=== PATIENT | male | born 1975 | race Caucasian/White ===

== ENCOUNTER 2017-08-08 19:02 | Emergency (ER) | payer OTHER ==
--- NOTE | 2017-08-08 19:27 | CPEKG ---
Heart Rate: 69 RR Interval: 870 P-R Interval: 118 QRSD Interval: 96 QT Interval: 376 QTC Interval: 403 P Lowland: 74 QRS Lowland: -11 T Wave Lowland: 45 EKG Severity - NORMAL ECG - EKG Impression: SINUS RHYTHM Electronically Signed By: Claire Irene 08-Aug-2017 22:59:03
[2017-08-08] MEDS ORDERED: NS 500 ML IV ONE (19:32)
--- NOTE | 2017-08-08 19:32 | EDPHY ---
H & P Stated Complaint: chest tightness with exertion Time Seen by Provider: 08/08/17 19:31 HPI/ROS: HPI: This is a 42-year-old male who presents with Chief Complaint: chest tightness with exertion Location: Chest Quality: Tightness with exertion Duration: Since Monday Signs and Symptoms: no shortness of breath at rest, no shortness of breath on exertion, no cough, no chest pain, no palpitations, no lower extremity edema, no wheezing, no orthopnea, no paroxysmal nocturnal dyspnea, no fever, no injury/ trauma, no hemoptysis Timing: Intermittent episodes Severity: Moderate Context: Patient is generally healthy, physically active and presents with complaints of cardiac awareness, pounding pulse and decreased physical endurance anterior chest tightness that is nonradiating in nature that started Monday [place]. Patient reports that he does this several times per month and has no had no difficulty in the past. He reports that the episode lasted for a few minutes, he was winded and felt like he was just tired. Monday similar occurrence happened. Monday evening he went to an exercise class and felt winded with chest tightness. Patient denies any nausea/vomiting/diaphoresis/palpitations/lower extremity edema. Family history of coronary artery disease with stents. He has no PCP. Nonsmoker. Modifying Factors: None Comment: ROS: see HPI Constitutional: No fever, no chills, no weight loss Eyes: No blurred vision Respiratory: No shortness of breath, no cough Cardiovascular: + chest pain, no palpitations, no lower extremity edema Gastrointestinal: No nausea, no vomiting, no diarrhea Genitourinary: No dysuria Extremities: No myalgias Neurologic: No weakness, no numbness Skin: No rashes Hematologic: No bruising, no bleeding MEDICAL/SURGICAL/SOCIAL HISTORY: Medical history: Burketts lymphoma Surgical history: Denies Social history: Employed. CONSTITUTIONAL: Well-developed well-nourished adult white male, awake and alert , no obvious distress HEENT: Atraumatic and normocephalic, PERRL, EOMI. Tympanic membranes clear. Oropharynx clear, no exudate and moist pink mucosa. Airway patent. No lymphadenopathy. No meningismus. Cardiovascular: Normal S1/S2, regular rate, regular rhythm, without murmur rub or gallop. PULMONARY/CHEST: Symmetrical and nontender. Clear to auscultation bilaterally. Good air movement. No accessory muscle usage. ABDOMEN: Soft, nondistended, nontender, no rebound, no guarding, no peritoneal signs, no masses or organomegaly. No CVAT. EXTREMITIES: 2/2 pulses, strength 5/5, no deformities, no clubbing, no cyanosis or edema. NEUROLOGICAL: no focal neuro deficits. GCS 15. SKIN: Warm and dry, no erythema. no rash. Good capillary refill. Source: Patient Exam Limitations: No limitations - Personal History Current Tetanus/Diphtheria Vaccine: Yes - Medical/Surgical History Hx Asthma: No Hx Chronic Respiratory Disease: No Hx Diabetes: No Hx Cardiac Disease: No Hx Renal Disease: No Hx Cirrhosis: No Hx Alcoholism: No Hx HIV/AIDS: No Hx Splenectomy or Spleen Trauma: No Other PMH: burkettes lymphoma - Social History Smoking Status: Never smoked Constitutional: Initial Vital Signs Temperature (C) 36.8 C 08/08/17 19:04 Heart Rate 78 08/08/17 19:04 Respiratory Rate 18 08/08/17 19:04 Blood Pressure 158/111 H 08/08/17 19:04 O2 Sat (%) 96 08/08/17 19:04 O2 Delivery Mode Room Air Allergies/Adverse Reactions: Penicillins Allergy (Verified 08/08/17 19:03) Home Medications: Medication Instructions Recorded NK [No Known Home Meds] 08/08/17 Medical Decision Making - Diagnostics Imaging Results: Imaging Impressions Chest X-Ray 08/08/17 19:32 Impression: Clear lungs. No acute process. ED Course/Re-evaluation: EKG, chest x-ray, labs ordered Vital signs reviewed upon arrival in show elevated blood pressure. EKG shows no acute ischemic changes or arrhythmias. YOSELIN risk factors= 8; low risk for ACS Labs reviewed and unremarkable Troponin x2 within normal limits Appropriate to discharge home with Cardiology follow-up outpatient including determination of candidacy for echocardiogram and nuclear stress test. Reassessed patient who reports no chest tightness or shortness of breath. This patient was seen under the supervision of my primary supervising physician. I evaluated care for this patient independently. Differential Diagnosis: Chest pain including but not limited to myocardial ischemia, pulmonary embolus, chest wall pain, pleural inflammation and pulmonary infectious causes. - Data Points Laboratory Results: Laboratory Results 08/08/17 19:46 08/08/17 19:46 08/08/17 08/08/17 08/08/17 22:45 19:46 19:46 WBC RBC Hgb Hct MCV MCH MCHC RDW Plt Count MPV Neut % (Auto) Lymph % (Auto) [place] % (Auto) Eos % (Auto) Baso % (Auto) Nucleat RBC Rel Count Absolute Neuts (auto) Absolute Lymphs (auto) Absolute Monos (auto) Absolute Eos (auto) Absolute Basos (auto) Absolute Nucleated RBC Immature Gran % Immature Gran # D-Dimer < 0.27 ug/mLFEU ug/mLFEU (0.00-0.50) Sodium 139 mEq/L mEq/L (135-145) Potassium 4.6 mEq/L mEq/L (3.5-5.2) Chloride 106 mEq/L mEq/L (97-110) Carbon Dioxide 22 mEq/l mEq/l (22-31) Anion Gap 11 mEq/L mEq/L (8-16) BUN 20 mg/dL mg/dL (7-23) Creatinine 1.0 mg/dL mg/dL (0.7-1.3) Estimated GFR > 60 Glucose 95 mg/dL mg/dL (70-100) Calcium 10.0 mg/dL mg/dL (8.5-10.4) Troponin I < 0.012 ng/mL ng/mL < 0.012 ng/mL ng/mL (0.000-0.034) (0.000-0.034) 08/08/17 19:46 WBC 4.34 10^3/uL 10^3/uL (3.80-9.50) RBC 4.98 10^6/uL 10^6/uL (4.40-6.38) Hgb 15.7 g/dL g/dL (13.7-17.5) Hct 46.0 % % (40.0-51.0) MCV 92.4 fL fL (81.5-99.8) MCH 31.5 pg pg (27.9-34.1) MCHC 34.1 g/dL g/dL (32.4-36.7) RDW 13.4 % % (11.5-15.2) Plt Count 244 10^3/uL 10^3/uL (150-400) MPV 9.7 fL fL (8.7-11.7) Neut % (Auto) 56.0 % % (39.3-74.2) Lymph % (Auto) 31.3 % % (15.0-45.0) [place] % (Auto) 10.4 % % (4.5-13.0) Eos % (Auto) 1.6 % % (0.6-7.6) Baso % (Auto) 0.5 % % (0.3-1.7) Nucleat RBC Rel Count 0.0 % % (0.0-0.2) Absolute Neuts (auto) 2.43 10^3/uL 10^3/uL (1.70-6.50) Absolute Lymphs (auto) 1.36 10^3/uL 10^3/uL (1.00-3.00) Absolute Monos (auto) 0.45 10^3/uL 10^3/uL (0.30-0.80) Absolute Eos (auto) 0.07 10^3/uL 10^3/uL (0.03-0.40) Absolute Basos (auto) 0.02 10^3/uL 10^3/uL (0.02-0.10) Absolute Nucleated RBC 0.00 10^3/uL 10^3/uL (0-0.01) Immature Gran % 0.2 % % (0.0-1.1) Immature Gran # 0.01 10^3/uL 10^3/uL (0.00-0.10) D-Dimer Sodium Potassium Chloride Carbon Dioxide Anion Gap BUN Creatinine Estimated GFR Glucose Calcium Troponin I Medications Given: Discontinued Medications Sodium Chloride (Ns) 500 mls @ 0 mls/hr IV EDNOW ONE; Wide Open PRN Reason: Protocol Stop: 08/08/17 19:33 Last Admin: 08/08/17 19:54 Dose: 500 mls Departure - Departure Disposition: Home, Routine, Self-Care Clinical Impression: Feeling of chest tightness Condition: Good Instructions: Chest Pain (ED), Shortness of Breath (ED) Additional Instructions: Please limit physical activity until you are seen by Cardiology in the next 5-7 days for follow-up. Call Cardiology tomorrow to schedule follow-up appointment. Return to the ER immediately if you experience new, continued or worsened chest pain, chest pain that radiates, chest pain accompanied by exertion or associated with shortness of breath, sweating, nausea, dizziness, back pain, or any other symptoms that concern you. Referrals: Olive Negrete MD [Medical Doctor] - As per Instructions
[2017-08-08 19:53] LABS: PLATELET COUNT 244 10^3/uL (150-400)
[2017-08-08 23:15] VITALS: RESP 18
[2017-08-08 23:55] VITALS: BP 142/96; PULSE 59; TEMP 97.9; O2SAT 97
== END 2017-08-08 23:35 | disposition home or self-care (01) ==
DX: R07.89 Other chest pain (principal); E86.9 Volume depletion, unspecified